=== PATIENT | male | born 1985 | race Caucasian/White ===

== ENCOUNTER 2018-02-17 10:10 | Emergency (ER) | payer BC ==
--- NOTE | 2018-02-17 10:23 | CPEKG ---
Heart Rate: 70 RR Interval: 857 P-R Interval: 180 QRSD Interval: 116 QT Interval: 408 QTC Interval: 441 P [place]: 54 QRS [place]: 81 T Wave [place]: 57 EKG Severity - ABNORMAL ECG - EKG Impression: SINUS RHYTHM EKG Impression: NONSPECIFIC INTRAVENTRICULAR CONDUCTION DELAY Electronically Signed By: Maggie Arellano 17-Feb-2018 15:11:50
[2018-02-17] MEDS ORDERED: MECLIZINE HCL 25 MG TAB PO ONE (10:45)
--- NOTE | 2018-02-17 10:48 | EDPHY ---
H & P Stated Complaint: c/o Dizzyness /N/V 30 Min Time Seen by Provider: 02/17/18 10:37 HPI/ROS: CHIEF COMPLAINT: Vertigo HISTORY OF PRESENT ILLNESS: 32-year-old male presents with vertigo. Onset of a room spinning sensation this morning, associated with nausea. The vertigo gradually increased throughout the day and is associated with vomiting. The vertigo increases with head and eye movement. Feels ok if remains still. No headache, numbness, weakness or other associated symptoms. No recent head/neck trauma and no chiropractic manipulation. History of prior similar symptoms. REVIEW OF SYSTEMS: complete 10 point ROS negative except at noted in the HPI - Personal History Current Tetanus Diphtheria and Acellular Pertussis (TDAP): Yes - Medical/Surgical History Hx Asthma: No Hx Chronic Respiratory Disease: No Hx Diabetes: No Hx Cardiac Disease: No Hx Renal Disease: No Hx Cirrhosis: No Hx Alcoholism: No Hx HIV/AIDS: No Hx Splenectomy or Spleen Trauma: No Other PMH: SZ - Social History Smoking Status: Never smoked - Physical Exam Exam: General Appearance: Alert, pleasant Eyes: Pupils equal and round, no conjunctival pallor or injection, horizontal nystagmus ENT, Mouth: Mucous membranes moist Neck: Normal inspection Respiratory: Lungs are clear to auscultation Cardiovascular: Regular rate and rhythm Gastrointestinal: Abdomen is soft and nontender Neurological: Alert, oriented x3, cranial nerves II through XII intact, motor 5 /5, sensory intact to light touch, normal gait Skin: Warm and dry Extremities: Normal inspection Psychiatric: Mood and affect normal Constitutional: Initial Vital Signs Temperature (C) 36.6 C 02/17/18 10:20 Heart Rate 67 02/17/18 10:20 Respiratory Rate 18 02/17/18 10:20 Blood Pressure 120/88 H 02/17/18 10:20 O2 Sat (%) 96 02/17/18 10:20 O2 Delivery Mode Room Air Allergies/Adverse Reactions: No Known Allergies Allergy (Unverified 02/17/18 10:19) Home Medications: Medication Instructions Recorded Carbamazepine 02/17/18 Ondansetron Odt [Zofran Odt 4 mg 4 mg PO Q4 PRN #6 tab 02/17/18 (*)] Zoloft 50mg (*) 02/17/18 Medical Decision Making - Diagnostics EKG Interpretation: EKG interpreted by me reveals normal sinus rhythm, rate 70, no ST or T segment changes. ED Course/Re-evaluation: This patient presents with vertigo. Neurologic exam is normal and there are no concerning signs or symptoms suggestive of central etiology. Stat EKG reveals no evidence of ischemia or dysrhythmia. Meclizine 25 mg orally given. Much better after Meclizine. Upon d/c home, IV d/c'd, pt stood up and vomited. Zofran 4mg ODT given. Better after Zofran, nausea resolved. Able to walk with a steady gait. Return precautions given. f/u PCP and ENT if sx persist. Differential Diagnosis: Differential diagnosis includes TIA, stroke, intracranial hemorrhage, tumor, electrolyte abnormality and acute labyrinthitis. - Data Points Medications Given: Discontinued Medications Meclizine HCl (Meclizine Hcl) 25 mg PO EDNOW ONE Stop: 02/17/18 10:46 Last Admin: 02/17/18 10:58 Dose: 25 mg Ondansetron HCl (Zofran Odt) 4 mg PO EDNOW ONE Stop: 02/17/18 12:16 Last Admin: 02/17/18 12:15 Dose: 4 mg Departure - Departure Disposition: Home, Routine, Self-Care Clinical Impression: Vertigo Condition: Good Instructions: Vertigo (ED) Additional Instructions: Take meclizine 25 mg orally every 6 hr as needed for vertigo. Referrals: Aleksandar Keys MD [Medical Doctor] - 2-3 days, if not improved Prescriptions: Ondansetron Odt [Zofran Odt 4 mg (*)] 4 mg PO Q4 PRN #6 tab PRN Reason: Nausea
[2018-02-17 11:36] VITALS: BP 147/64
[2018-02-17] MEDS ORDERED: ONDANSETRON DISINTEGRATING 4 MG TAB PO ONE (12:15)
[2018-02-17] MEDS ORDERED: ONDANSETRON DISINTEGRATING 4 MG TAB ONE (12:24)
== END 2018-02-17 12:30 | disposition home or self-care (01) ==
DX: R42 Dizziness and giddiness (principal)